=== PATIENT | male | born 1965 | race Caucasian/White ===

== ENCOUNTER 2017-04-26 18:05 | Emergency (ER) | payer OTHER, BC ==
[~2017-04-26] VITALS: Ht 172.7 cm; Wt 72.8 kg
[~2017-04-26 18:05] MED LIST: CLX20 PO; LRT5 PO
[2017-04-26 18:09] VITALS: Ht 172.7 cm; Wt 72.8 kg
[2017-04-26] MEDS ORDERED: BUPIVACAINE 0.5 % 5 MG/1 ML MPF 30ML VIAL INFIL ONE (18:30)
[2017-04-26] MEDS ORDERED: XYLOCAINE 1%/SOD BICARB 20 ML VIAL INFIL ONE (18:30)
[2017-04-26] MEDS ORDERED: DIPHTHERIA/TETANUS/PERTUSSIS 0.5 ML SYR/VIAL IM. ONE (19:00)
--- NOTE | 2017-04-26 19:18 | DIAGNOSTIC IMAGING REPORT ---
LEFT FINGER(S) MIN 2 VIEWS ROUTINE HISTORY: 51 years-old Male crush injury left 4th finger COMPARISON: None available TECHNIQUE: 3 views of the left fingers with attention to the fourth digit FINDINGS: There is moderate soft tissue swelling with subcutaneous emphysema and elevation of the fourth digit nailbed. Punctate radiodensities are seen along the ulnar aspect of the fourth digit at the level of the middle phalanx, suspicious for foreign bodies or alternatively foci on the skin surface. There is no acute fracture or dislocation identified. There is a remote fracture deformity of the distal fifth metacarpal. IMPRESSION: 1. Soft tissue swelling with apparent nailbed injury of the fourth digit. No acute bony abnormality. 2. Punctate radiodense foci along the ulnar aspect of the fourth digit at the level of the middle phalanx suggest foci on the skin surface or alternatively may reflect radiopaque foreign bodies. 3. Remote fracture deformity of the fifth metacarpal. The above report was generated using voice recognition software. It may contain grammatical, syntax or spelling errors. Electronically signed by: Omari Seth M.D. 04/26/2017 7:17 PM Dictated Date/Time: 04/26/2017 7:14 PM
[2017-04-26] MEDS ORDERED: CEPH500C PO (19:52)
--- NOTE | 2017-04-26 19:53 | EMERGENCY ROOM VISIT NOTE ---
ED Visit Note First contact with patient: 18:20 CHIEF COMPLAINT: Fingernail avulsion HISTORY OF PRESENT ILLNESS: This 51-year-old male patient presents to the emergency department approximately one hour after avulsing the fingernail on the left fourth finger at work. The patient states he was unwinding chains on a trailer, when the chain landed on his finger, and he pulled his hand out from under the chain. The patient states his glove remained under the chain as he pulled his finger out. The patient states "I ripped my fingernail off". The bleeding has not stopped. Denies weakness or numbness of the finger. The patient has full range of motion of the fingers. The patient rates the pain as throbbing and 7/10. The patient denies any other injuries. The patient's tetanus shot is not up to date. REVIEW OF SYSTEMS: A 6 system review of systems was completed with positives and pertinent negatives listed in the HPI. ALLERGIES: None MEDICATIONS: None PMH: None SOCIAL HISTORY: A she lives locally with family. He denies drug, back or use. The patient does admit to social alcohol use. PHYSICAL EXAM: Vital Signs: Reviewed Nurse's notes, vital signs stable. GENERAL : This is a 51-year-old male, in no acute distress, well developed, well nourished. SKIN: The left fourth fingernail is avulsed from the base of the nail. The middle of the nail remains intact on the nail bed. There is no laceration under the fingernail. The fingernail remains intact. There is no obvious foreign body. There is moderate bleeding. No deep structures such as tendons, bones, or significant blood vessels are seen in the base of the wound. Extension and flexion of the finger is full and strong. Full range of motion of the wrist and other fingers. Capillary refill less than 2 seconds. Normal sensation to light and sharp touch. RADIOLOGY: X-Ray Left 4th finger: FINDINGS: There is moderate soft tissue swelling with subcutaneous emphysema and elevation of the fourth digit nailbed. Punctate radiodensities are seen along the ulnar aspect of the fourth digit at the level of the middle phalanx, suspicious for foreign bodies or alternatively foci on the skin surface. There is no acute fracture or dislocation identified. There is a remote fracture deformity of the distal fifth metacarpal. IMPRESSION: 1. Soft tissue swelling with apparent nailbed injury of the fourth digit. No acute bony abnormality. 2. Punctate radiodense foci along the ulnar aspect of the fourth digit at the level of the middle phalanx suggest foci on the skin surface or alternatively may reflect radiopaque foreign bodies. 3. Remote fracture deformity of the fifth metacarpal. X-Ray Left Hand: DISCUSSION: There is an old healed fifth metacarpal fracture. There is an old ununited ulnar styloid fracture. Osteoarthritic changes are present most pronounced the level the first carpal metacarpal joint. IMPRESSION: 1. Old healed fracture the fifth metacarpal 2. Old ununited ulnar styloid fracture 3. Osteoarthritic change 4. No acute fractures EMERGENCY DEPARTMENT COURSE: I examined the patient. X-Ray of the left 4th finger showed fracture of the 5th metacarpal bone as well as possible foreign body on the medial aspect of the 4th digit. I did not note any foreign body, and feel that the finding on x-ray was incidental and related to the patient's skin, as the laceration did not extend to the middle phalange where the possible FB was located. Verbal consent was obtained to perform the procedure. Using sterile technique the wound was cleansed with Betadine. 4 ml of 1% buffered lidocaine and 0.5% Bupivacaine was used to perform a digital block to anesthetize the patient. The area was sterilely draped. Once the patient was anesthetized, the wound was copiously irrigated under pressure with sterile saline. The wound was explored and there were no deep structures injured. The nail was tacked to the nail bed using 2 simple interrupted 4-0 sutures. The patient tolerated the procedure well. Hemostasis was achieved, however, there does continue to be oozing of blood from under the fingernail out of the sides. The area was cleaned with sterile saline and dressed with bacitracin ointment and bandage. The patient was given a tetanus booster. X-Ray of the Left hand was performed due to findings on finger x-ray. This was reviewed by myself and radiologist and showed no acute fracture. I discussed all findings with the patient. The patient was discharged home in good condition. DIFFERENTIAL DIAGNOSIS: Fingernail avulsion, foreign body, laceration, finger fracture, metacarpal fracture, and others DIAGNOSIS: Fingernail avulsion DISCHARGE INSTRUCTIONS & TREATMENT: You have received 2 sutures on your left fourth finger, through the nail, for a nail avulsion. These sutures are NOT dissolvable and WILL need to be removed by a health care provider in 14 days. You can return to the Emergency Department or contact your Primary Care Provider to have the sutures removed. You were prescribed Keflex to be taken four times daily. This is an antibiotic. All antibiotics have the potential to cause diarrhea. Stop this medication and contact a medical provider if you were to develop any significant adverse side effects including: wheezing, shortness of breath, passing out, vomiting, or a diffuse rash. Always take antibiotics as directed and COMPLETE the ENTIRE course regardless of the improvement of your symptoms. Proper wound care is essential for adequate wound healing and infection prevention. You can shower and clean the wound with soap and water. Do not scour over the wound, pat dry with a towel. Do not submerse the wound (i.e. bathe or dish wash) until the sutures have been removed. You can use an antibiotic ointment with a dressing over the wound for the next 3-4 days. After this time you may leave the wound dry and open to the air. If crust develops over the wound you can use a Q-tip to apply a 1:1 peroxide:water solution to clean the wound. You may want to keep the wound covered while at work, due to the increased possibility of injuring your fingernail or pulling up the sutures. Please be extremely cautious with use of this finger, as the fingernail is only tacked down. There is a good chance your fingernail will fall off. Look for signs of infection of the wound including: increased pain, swelling, foul discharge, streaking, or increased temperature. If any of these are noticed you should return to the Emergency Department for further assessment and treatment. As with any laceration you may have received nerve damage to the surrounding tissues. This damage may or may not be permanent. You should keep the area covered with sunscreen for the first 6 months to 1 year when at risk for exposure to help minimize scarring. You can also use scar reducing creams or Vitamin E oil to help minimize scarring. For pain control, you can use the following lalt-zoi-navxilq medicines (if >12 yo): - Regular strength (325mg/tab) Tylenol (acetaminophen) 2 tabs every 4-6 hours as needed. Do not exceed 9 tablets in a 24 hour period. Avoid taking more than 3 grams (3000 mg) of Tylenol per day. This includes any other sources of acetaminophen you may take on a regular basis. - Regular strength (200 mg/tab) Advil (ibuprofen) 1-2 tabs every 4-6 hours as needed. Do not exceed a dose of 3200 mg per day. Return to the emergency department if your symptoms worsen despite treatment course outlined above. Current/Historical Medications Scheduled Cephalexin Monohydrate (Keflex), 500 MG PO QID Allergies Coded Allergies: No Known Allergies (Verified , 12/11/13) Vital Signs Date Time Temp Pulse Resp B/P (MAP) Pulse Ox O2 Delivery O2 Flow Rate FiO2 04/26/17 18:09 36.8 78 16 158/100 94 Room Air Medications Administered Medications (Trade) Dose Ordered Sig/Pepper Route Start Time Stop Time Status Last Admin Dose Admin Lidocaine HCl (Buffered Lidocaine 1% Inj) 20 ml ONE ONCE INFIL 04/26/17 18:30 04/26/17 18:31 DC 04/26/17 18:30 20 ML Bupivacaine HCl (Marcaine 0.5% MPF Inj) 30 ml NOW ONCE INFIL 04/26/17 18:30 04/26/17 18:31 DC 04/26/17 18:30 30 ML Diphtheria/ Pertussis/Tetanus Vacc (Adacel Inj) 0.5 ml ONCE ONCE IM. 04/26/17 19:00 04/26/17 19:02 DC 04/26/17 19:20 0.5 ML Cephalexin Monohydrate (Keflex 500MG Home Pack) 1 homepack NOW ONCE PO 04/26/17 20:30 04/26/17 20:31 04/26/17 20:24 1 HOMEPACK Departure Information Impression Primary Impression: Fingernail avulsion, partial Dispostion Home / Self-Care Condition GOOD Prescriptions Cephalexin Monohydrate (Keflex) 500 Mg Cap 500 MG PO QID for 10 Days, #40 CAP Prov: Vernell Noel PA-C 04/26/17 Referrals Subhash Novak M.D. (PCP) Patient Instructions ED Laceration All, [facility] Additional Instructions You have received 2 sutures on your left fourth finger, through the nail, for a nail avulsion. These sutures are NOT dissolvable and WILL need to be removed by a health care provider in 14 days. You can return to the Emergency Department or contact your Primary Care Provider to have the sutures removed. You were prescribed Keflex to be taken four times daily. This is an antibiotic. All antibiotics have the potential to cause diarrhea. Stop this medication and contact a medical provider if you were to develop any significant adverse side effects including: wheezing, shortness of breath, passing out, vomiting, or a diffuse rash. Always take antibiotics as directed and COMPLETE the ENTIRE course regardless of the improvement of your symptoms. Proper wound care is essential for adequate wound healing and infection prevention. You can shower and clean the wound with soap and water. Do not scour over the wound, pat dry with a towel. Do not submerse the wound (i.e. bathe or dish wash) until the sutures have been removed. You can use an antibiotic ointment with a dressing over the wound for the next 3-4 days. After this time you may leave the wound dry and open to the air. If crust develops over the wound you can use a Q-tip to apply a 1:1 peroxide:water solution to clean the wound. You may want to keep the wound covered while at work, due to the increased possibility of injuring your fingernail or pulling up the sutures. Please be extremely cautious with use of this finger, as the fingernail is only tacked down. There is a good chance your fingernail will fall off. Look for signs of infection of the wound including: increased pain, swelling, foul discharge, streaking, or increased temperature. If any of these are noticed you should return to the Emergency Department for further assessment and treatment. As with any laceration you may have received nerve damage to the surrounding tissues. This damage may or may not be permanent. You should keep the area covered with sunscreen for the first 6 months to 1 year when at risk for exposure to help minimize scarring. You can also use scar reducing creams or Vitamin E oil to help minimize scarring. For pain control, you can use the following [id number]-mkw-[id number] medicines (if >12 yo): - Regular strength (325mg/tab) Tylenol (acetaminophen) 2 tabs every 4-6 hours as needed. Do not exceed 9 tablets in a 24 hour period. Avoid taking more than 3 grams (3000 mg) of Tylenol per day. This includes any other sources of acetaminophen you may take on a regular basis. - Regular strength (200 mg/tab) Advil (ibuprofen) 1-2 tabs every 4-6 hours as needed. Do not exceed a dose of 3200 mg per day. Return to the emergency department if your symptoms worsen despite treatment course outlined above. Problem Qualifiers Primary Impression: Fingernail avulsion, partial Encounter type: initial encounter Qualified Codes: S61.309A - Unspecified open wound of unspecified finger with damage to nail, initial encounter
--- NOTE | 2017-04-26 20:11 | DIAGNOSTIC IMAGING REPORT ---
LEFT HAND MIN 3 VIEWS ROUTINE CLINICAL HISTORY: Fifth metacarpal fracture. Crush injury. COMPARISON: Left fourth finger dated 04/26/2017 DISCUSSION: There is an old healed fifth metacarpal fracture. There is an old ununited ulnar styloid fracture. Osteoarthritic changes are present most pronounced the level the first carpal metacarpal joint. IMPRESSION: 1. Old healed fracture the fifth metacarpal 2. Old ununited ulnar styloid fracture 3. Osteoarthritic change 4. No acute fractures Electronically signed by: Xavi Kwon M.D. 04/26/2017 8:10 PM Dictated Date/Time: 04/26/2017 8:09 PM
[2017-04-26] MEDS ORDERED: CEPHALEXIN 500MG HOME PACK 1 EA BTL PO ONE (20:30)
[2017-04-26 20:57] VITALS: BP 141/97; PULSE 72; TEMP 36.8; O2SAT 95
== END 2017-04-26 20:58 | disposition home or self-care (01) ==
LOC: C.EDB 18:07 → C.EDD 20:58
DX: S61.301A Unspecified open wound of left index finger with damage to nail, initial encounter (principal); S52.616 Nondisplaced fracture of unspecified ulna styloid process; W22.8XXA Striking against or struck by other objects, initial encounter; Y99.0 Civilian activity done for income or pay; M19.042 Primary osteoarthritis, left hand

== ENCOUNTER 2019-11-14 10:55 | Observation (INO) ==
[2019-11-14] MEDS ORDERED: SODIUM CHLORIDE 0.9% 1000ML 1,000 ML IV ONE (11:16)
[2019-11-14 11:37] LABS: Basophils # (auto) 0.02 K/uL (0-0.2); Basophils % (auto) 0.2 %; Eosinophils # (auto) 0.16 K/uL (0-0.5); Eosinophils % (auto) 1.6 %; Hemoglobin 16.5 g/dL (14.0-18.0); Immature Granulocytes # (auto) 0.02 K/uL (0.00-0.02); Immature Granulocytes % (auto) 0.2 %; Lymphocytes # (auto) 1.08 K/uL (1.2-3.4); Mean Corpuscular Hemoglobin 30.4 pg (25-34); Mean Corpuscular Hgb Conc 36.7 g/dL (32-36); Mean Platelet Volume 8.9 fL (7.4-10.4); Monocytes # (auto) 1.11 K/uL (0.11-0.59); Monocytes % (auto) 11.3 %; Neutrophils # (auto) 7.39 K/uL (1.4-6.5); Neutrophils % (auto) 75.7 %; Platelet Count 192 K/uL (130-400); RDW Coefficient of Variation 12.1 % (11.5-14.5); RDW Standard Deviation 36.7 fL (36.4-46.3); Red Blood Count 5.42 M/uL (4.7-6.1); White Blood Count 9.78 K/uL (4.8-10.8)
--- NOTE | 2019-11-14 11:47 | Emergency Department Note ---
History of Present Illness General Chief complaint: Abdominal Pain Stated complaint: LOWER RT ABD PAIN Time Seen by Provider: 11/14/19 11:06 History of Present Illness Maximum Pain Intensity: 6 54-year-old male who presents to the emergency department for evaluation of right lower abdominal pain. The patient reports that he noticed the pain this morning while at work. 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 Even walking worsens his pain. He denies any pain radiating into the left lower abdomen or back. He denies any nausea or vomiting, and also denies any recent urinary symptoms, blood in the urine, constipation or diarrhea. The patient denies any prior history of bowel disease. He is stools are normal in appearance and frequency. The pain is constant and achy in nature, with the patient rating his discomfort a 6 out of 10. Home Medications Home Medications Medication Instructions Recorded Confirmed Type omeprazole 20 mg PO DAILY PRN 11/14/19 11/14/19 History Allergies Allergy/AdvReac Type Severity Reaction Status Date / Time No Known Allergies Allergy Unknown Verified 11/14/19 11:21 Past Med/Surg History Medical History GERD (gastroesophageal reflux disease) Surgical History No significant past surgical history Social History marital status: Single current occupational status: employed Feels Safe at Home: Yes Smoking Status: Never smoker Tobacco Type: smokeless tobacco ; Do You Dip or Chew Tobacco: Yes ; Review of Systems 10 system review was performed and was negative except for pertinent positives and negatives as indicated in history of present illness Physical Exam Vital Signs Vital Signs - 24 hr 11/14/19 11:03 11/14/19 13:29 11/14/19 14:02 Temperature 37.0 C 37.0 C Temperature Source Oral Oral Pulse Rate 78 Pulse Rate [Right Finger] 82 82 Pulse Rhythm [Right Finger] Regular Regular Pulse Strength [Right Finger] Normal Normal Respiratory Rate 20 16 16 Respiratory Effort / Characteristics Non-Labored Non-Labored Non-Labored Spontaneous Respiratory Depth Normal Normal Normal Respiratory Pattern Regular Regular Blood Pressure 133/73 Blood Pressure [Right Arm] 131/87 131/87 Blood Pressure Mean 93 Blood Pressure Mean [Right Arm] 101 101 Blood Pressure Position [Right Arm] Lying Sitting Pulse Oximetry 97 95 96 Oxygen Delivery Method Room Air Room Air Room Air Sepsis Recent Fever Within 48 Hours No Sepsis Action Taken by Nursing No Action Required CONSTITUTIONAL: Healthy and well nourished. Patient does not appear in any acute distress. HEENT: Normocephalic, atraumatic. Pupils equal, round and reactive. No scleral icterus or conjunctival injection/pallor. NECK: Full active range of motion without discomfort. RESPIRATORY: Clear to auscultation bilaterally with no wheezing, crackles, rhonchi or stridor. CARDIOVASCULAR: Regular rate and rhythm with no murmurs, rubs or gallops. GASTROINTESTINAL: Bowel sounds present in all quadrants. Positive McBurney's point tenderness, positive Rovsing sign and positive heeltap. Negative psoas/obturator sign. Negative CVA tenderness. No abdominal rigidity, guarding or rebound. MUSCULOSKELETAL: Full range of motion of all joints without discomfort. INTEGUMENTARY: No rash or other significant dermatologic conditions noted. HEMATOLOGIC: No ecchymosis or petechiae. PSYCHIATRIC: Positive affect. NEUROLOGIC: No focal neurologic deficits noted. Course Course Patient history and physical exam were performed. Nurse's notes were reviewed. Vital signs were reviewed and were normal. The patient refused any analgesics. IV access was established, and labs were drawn. The patient was hydrated with a liter of normal saline. Review of labs does not show any significant abnormalities. CT of the abdomen and pelvis with IV contrast shows evidence for a Meckel's diverticulitis of the small bowel in the right lower quadrant. Findings were discussed with Dr. Davison, ED attending physician, who recommended discussing the case further with general surgery. I then discussed the case further with Angelo Biggs PA-C, working with Dr. Patel, and came to the emergency department for further reevaluation. Please see their dictation for further treatment and final disposition. Administered Medications Ioversol (Optiray 320 100ml) 94 ml IV ONCE PRN PRN Reason: Interaction Checking Stop: 11/18/19 12:09 Last Admin: 11/14/19 12:11 Dose: 94 ml Documented by: [id number] Discontinued Medications Sodium Chloride (Nss 1000ml) 1,000 mls @ 999 mls/hr IV .Q1H1M ONE Stop: 11/14/19 12:16 Last Infusion: 11/14/19 12:37 Dose: 0 mls/hr Documented by: [id number] Admin: 11/14/19 11:29 Dose: 999 mls/hr Documented by: [id number] Medical Decision Making Medical Records Attestation: I reviewed the patient's medical records. Home Medications Current Medication List: was personally reviewed by me Laboratory Data Attestation: I reviewed the patient's lab results. Result diagrams: 11/14/19 11:28 11/14/19 11:28 Lab Results 11/14/19 11/14/19 11/14/19 Range/Units 11:28 11:28 12:06 WBC 9.78 (4.8-10.8) K/uL RBC 5.42 (4.7-6.1) M/uL Hgb 16.5 (14.0-18.0) g/dL Hct 45.0 (42-52) % MCV 83.0 (80-100) fL MCH 30.4 (25-34) pg MCHC 36.7 H (32-36) g/dL RDW Std Deviation 36.7 (36.4-46.3) fL RDW Coeff of Maria De Jesus 12.1 (11.5-14.5) % Plt Count 192 (130-400) K/uL MPV 8.9 (7.4-10.4) fL Immature Gran % (Auto) 0.2 % Neut % (Auto) 75.7 % Lymph % (Auto) 11.0 % [place] % (Auto) 11.3 % Eos % (Auto) 1.6 % Baso % (Auto) 0.2 % Immature Gran # (Auto) 0.02 (0.00-0.02) K/uL Neut # (Auto) 7.39 H (1.4-6.5) K/uL Lymph # (Auto) 1.08 L (1.2-3.4) K/uL [place] # (Auto) 1.11 H (0.11-0.59) K/uL Eos # (Auto) 0.16 (0-0.5) K/uL Baso # (Auto) 0.02 (0-0.2) K/uL Sodium 138 (136-145) mmol/L Potassium 4.0 (3.5-5.1) mmol/L Chloride 106 (98-107) mmol/L Carbon Dioxide 25 (21-32) mmol/L Anion Gap 7.0 (3-11) BUN 20 H (7-18) mg/dl Creatinine 1.02 (0.6-1.4) mg/dl Est Cr Clr Drug Dosing 73.8 ml/min Est GFR ( Amer) 95.5 Est GFR (Non-Af Amer) 82.4 BUN/Creatinine Ratio 19.9 (10-20) Glucose 85 (70-99) mg/dl Calcium 9.6 (8.5-10.1) mg/dl Total Bilirubin 0.7 (0.2-1) mg/dl AST 24 (15-37) U/L ALT 51 (12-78) U/L Alkaline Phosphatase 82 (45-117) U/L Total Protein 8.2 (6.4-8.2) gm/dl Albumin 4.2 (3.4-5.0) gm/dl Globulin 4.0 (2.5-4.0) gm/dl Albumin/Globulin Ratio 1.1 (0.9-2) Lipase 166 (73-393) U/L Urine Color Yellow Urine Appearance Clear (Clear) Urine pH 7.0 (4.5-7.5) Ur Specific [place] 1.015 (1.000-1.030) Urine Protein Negative (Negative) Urine Glucose (UA) Negative (Negative) Urine Ketones Negative (Negative) Urine Blood Negative (Negative) Urine Nitrite Negative (Negative) Urine Bilirubin Negative (Negative) Urine Urobilinogen Negative (Negative) Ur Leukocyte Esterase Negative (Negative) Imaging Data Attestation: I personally reviewed and interpreted this imaging study as star alexandre: My Impression: My interpretation of his CT of the abdomen and pelvis with IV contrast does not show evidence for appendicitis or obstruction. Radiologist d oes make mention of a thick-walled bilobed tubular structure within the right lower quadrant, containing air and fluid, suggestive of an inflamed Meckel's diverticulum. Radiologist's Impression: CT abd pelvis IV con only CLINICAL HISTORY: RLQ abd pain COMPARISON STUDY: None. TECHNIQUE: The patient was scanned in a dynamic helical fashion during i ntravenous administration of 94 cc of Optiray 320. A dose lowering technique was utilized adhering to the principles of ALARA. CT DOSE: 295.31 mGy.cm FINDINGS: Lower chest: There are dependent airspace opacities, statistically atelectatic. Liver: The contrast-enhanced liver is normal in size, contour, and attenuation. There is no intrahepatic biliary ductal dilatation. The hepatic veins and portal veins are patent. Gallbladder: Unremarkable. Spleen: Normal in size and attenuation. Pancreas: Unremarkable. Adrenal glands: Unremarkable. Kidneys: There is a 5 mm right renal hypodensity, likely representing a cyst. There is no hydronephrosis Bowel: There are no transition zones to indicate bowel obstruction. There is no evidence of acute diverticulitis. The appendix is normal. In the right lower quadrant, there is a thick-walled tubular structure which contains air and fluid. This appears to communicate with bowel. This likely represents an inflamed Meckel's diverticulum. Peritoneum: There is no intraperitoneal free air or abdominal ascites. Vasculature: The abdominal aorta is normal in course and caliber. Adenopathy: None. Pelvic viscera: There is mild prostatomegaly Skeletal structures: No destructive osseous lesions are seen. IMPRESSION: 1. No evidence of bowel obstruction. No evidence of free air 2. Normal appendix 3. Thick-walled bilobed tubular structure within the right lower quadrant containing air and fluid. This appears to to indicate with small bowel, and likely represents an inflamed Meckel's diverticulum. Blood Pressure Blood Pressure Findings: Normal blood pressure MDM Narrative Patient presents to the emergency department with abrupt onset of right lower quadrant abdominal pain. The patient examines like an acute appendicitis, with a positive McBurney's point tenderness and Rovsing sign. CT imaging does show evidence for a Meckel's diverticulum of the small bowel. Laboratory studies are not consistent with pancreatitis, cholecystitis or hepatitis. The patient was unable to provide a urine sample while in the emergency department. Impression & Plan Meckel's diverticulum, Abdominal pain, acute, right lower quadrant Discharge Plan Visit Data *Final* Discharge Date/Time: 11/14/19 13:59 Chief Complaint: Abdominal Pain Stated Complaint: LOWER RT ABD PAIN ED Provider: Kati Davison ED Midlevel Provider: Raúl Whaley Discharge Problem: Meckel's diverticulum, Abdominal pain, acute, right lower quadrant Patient Disposition: Still a Patient Discharge Instructions Interventions: ED Discharge Assessment Last Done: 11/14/19 13:53
[2019-11-14 12:02] LABS: Albumin Level 4.2 gm/dl (3.4-5.0); BUN Creatinine Ratio 19.9 (10-20); Calcium 9.6 mg/dl (8.5-10.1); Creatinine Clr Calc Pharmacy 73.8 ml/min; Est GFR (African American) 95.5; Est GFR (Non-African American) 82.4
[2019-11-14 12:05] LABS: Albumin Globulin Ratio 1.1 (0.9-2); Bilirubin,Total 0.7 mg/dl (0.2-1); Total Protein 8.2 gm/dl (6.4-8.2)
[2019-11-14] MEDS ORDERED: IOVERSOL 100ml IV PRN (12:10)
--- NOTE | 2019-11-14 12:30 | CT Scan Report ---
CT abd pelvis IV con only CLINICAL HISTORY: RLQ abd pain COMPARISON STUDY: None. TECHNIQUE: The patient was scanned in a dynamic helical fashion during intravenous administration of 94 cc of Optiray 320. A dose lowering technique was utilized adhering to the principles of ALARA. CT DOSE: 295.31 mGy.cm FINDINGS: Lower chest: There are dependent airspace opacities, statistically atelectatic. Liver: The contrast-enhanced liver is normal in size, contour, and attenuation. There is no intrahepa tic biliary ductal dilatation. The hepatic veins and portal veins are patent. Gallbladder: Unremarkable. Spleen: Normal in size and attenuation. Pancreas: Unremarkable. Adrenal glands: Unremarkable. Kidneys: There is a 5 mm right renal hypodensity, likely representing a cyst. There is no hydronephro sis Bowel: There are no transition zones to indicate bowel obstruction. There is no evidence of acute div erticulitis. The appendix is normal. In the right lower quadrant, there is a thick-walled tubular str ucture which contains air and fluid. This appears to communicate with bowel. This likely represents a n inflamed Meckel's diverticulum. Peritoneum: There is no intraperitoneal free air or abdominal ascites. Vasculature: The abdominal aorta is normal in course and caliber. Adenopathy: None. Pelvic viscera: There is mild prostatomegaly Skeletal structures: No destructive osseous lesions are seen. IMPRESSION: 1. No evidence of bowel obstruction. No evidence of free air 2. Normal appendix 3. Thick-walled bilobed tubular structure within the right lower quadrant containing air and fluid. T his appears to to indicate with small bowel, and likely represents an inflamed Meckel's diverticulum. ACT 112: Negative or not required by law. Electronically signed by: Xavi Kwon M.D. 11/14/2019 12:29 PM
[2019-11-14 13:37] LABS: Appearance Urine Clear (Clear); Bilirubin Urine Negative (Negative); Blood Urine Negative (Negative); Color Urine Yellow; Glucose Urine UA Negative (Negative); Ketones Urine Negative (Negative); Leukocyte Esterase Urine Negative (Negative); Nitrite Urine Negative (Negative); Protein Urine Negative (Negative); Specific Gravity Urine 1.015 (1.000-1.030); Urobilinogen Urine Negative (Negative)
--- NOTE | 2019-11-14 13:47 | History & Physical Report ---
Date of Service November 14, 2019 Assessment & Plan (1) Meckel's diverticulitis: This is a 54yM with no major medical issues who presents with right lower abdominal pain starting this AM. CT a/p reveals findings concerning for meckel's diverticulitis and a normal appearing appendix. Patient tender to palpation in the right lower quadrant. Options discussed with patient and he is agreeable to proceed with diagnostic laparoscopy with resection of the meckel's diverticulum. We will book patient for the OR today. Dr. fam will obtain consent. History of Present Illness Primary Care Provider: Subhash Novak MD This is a 54yM who presents to the [facility] ED on 11/14/19 with complaints of right lower abdominal pain. Patient reports he woke up with the pain this morning around 7AM. He went to work and run and felt like he had jolting pains with movement. He denies pain like this before, no nausea/vomiting. He presented to the ED as pain continued throughout the day. A CT a/p performed revealed findings concerning for an inflamed meckel's diverticulitis. WBC 9.78 and patient afebrile. Surgery was consulted. Allergies Allergy/AdvReac Type Severity Reaction Status Date / Time No Known Allergies Allergy Unknown Verified 11/14/19 11:21 Home Medications Home Medications Medication Instructions Recorded Confirmed Type omeprazole 20 mg PO DAILY PRN 11/14/19 11/14/19 History Past Med/Surg History Medical History GERD (gastroesophageal reflux disease) Surgical History No significant past surgical history Social History marital status: Single current occupational status: employed Feels Safe at Home: Yes Smoking Status: Never smoker Tobacco Type: smokeless tobacco ; Do You Dip or Chew Tobacco: Yes ; Review of Systems Gastrointestinal: + abdominal pain (right lower abdominal pain); no nausea and no vomiting Physical Exam Physical Exam: awake/alert Constitutional: well developed, well nourished, cooperative and comfortable; no acute distress Respiratory: normal respiratory effort Gastrointestinal (Abdomen): Inspection/Auscultation: abdomen not distended Percussion/Palpation: + abdomen tender (ttp in the rlq) and abdomen soft Results & Data Vital Signs (Past 12 Hours) Vital Signs Temp Pulse Pulse Resp BP BP Pulse Ox 11/14/19 13:29 82 16 131/87 95 11/14/19 11:03 37.0 C 78 20 133/[address] abd pelvis IV con only CLINICAL HISTORY: RLQ abd pain COMPARISON STUDY: None. TECHNIQUE: The patient was scanned in a dynamic helical fashion during intravenous administration of 94 cc of Optiray 320. A dose lowering technique was utilized adhering to the principles of ALARA. CT DOSE: 295.31 mGy.cm FINDINGS: Lower chest: There are dependent airspace opacities, statistically atelectatic. Liver: The contrast-enhanced liver is normal in size, contour, and attenuation. There is no intrahepatic biliary ductal dilatation. The hepatic veins and portal veins are patent. Gallbladder: Unremarkable. Spleen: Normal in size and attenuation. Pancreas: Unremarkable. Adrenal glands: Unremarkable. Kidneys: There is a 5 mm right renal hypodensity, likely representing a cyst. There is no hydronephrosis Bowel: There are no transition zones to indicate bowel obstruction. There is no evidence of acute diverticulitis. The appendix is normal. In the right lower quadrant, there is a thick-walled tubular structure which contains air and fluid. This appears to communicate with bowel. This likely represents an inflamed Meckel's diverticulum. Peritoneum: There is no intraperitoneal free air or abdominal ascites. Vasculature: The abdominal aorta is normal in course and caliber. Adenopathy: None. Pelvic viscera: There is mild prostatomegaly Skeletal structures: No destructive osseous lesions are seen. IMPRESSION: 1. No evidence of bowel obstruction. No evidence of free air 2. Normal appendix 3. Thick-walled bilobed tubular structure within the right lower quadrant containing air and fluid. This appears to to indicate with small bowel, and likely represents an inflamed Meckel's diverticulum. ACT 112: Negative or not required by law. Electronically signed by: Xavi Kwon M.D. 11/14/2019 12:29 PM Supervising Physician Co-Signing Physician Notes Patient seen and examined, labs and imaging reviewed, agree with above. 54-year-old male with sudden onset right lower quadrant pain this morning. Afebrile, vital signs stable. Tender to palpation in right lower quadrant with localized guarding. CT scan shows a normal appendix but reveals a possible inflamed Meckel's diverticulum. Plan for diagnostic laparoscopy, resection of Meckel's diverticulum, possible appendectomy, possible bowel resection, possible open The risk the procedure were discussed to include but not limited to bleeding, infection, need for future more extensive surgery, damage to surrounding structures, conversion open, no evidence of Meckel's and normal appendix, and the risk of anesthesia Preop antibiotics Admit for observation postop PG Care Time/CCT Total # of Minutes Spent Total Time Spent with Patient: Total time spent is greater than 50% in coordination of care (as documented) at patient's floor/unit and/or counseling patient: Coding Level of Care Code 96902 Initial Inpt Care Lvl 2 Diagnoses Meckel's diverticulitis Q43.0
[2019-11-14] MEDS ORDERED: FLUMAZENIL 0.1 MG/1 ML 10 ML VIAL IV PRN (14:15)
[2019-11-14] MEDS ORDERED: ePHEDrine sulfate 50 MG/ML AMP IV PRN (14:15)
[2019-11-14] MEDS ORDERED: fentaNYL citrate 100 MCG/2 ML VIAL IV PRN (14:15)
[2019-11-14] MEDS ORDERED: LABETALOL HCL IV 5 MG/ML 20ML IV PRN (14:15)
[2019-11-14] MEDS ORDERED: ONDANSETRON INJ 2 MG/ML 2 ML VIAL IV PRN ×2 (14:15→17:38)
[2019-11-14] MEDS ORDERED: HYDROmorphone INJ 1 MG/ML SYRINGE IV PRN (14:15)
[2019-11-14] MEDS ORDERED: NALOXONE HCL 0.4 MG/1 ML VIAL/CARP IV PRN (14:15)
[2019-11-14] MEDS ORDERED: ATROPINE SULFATE 0.1 MG/ML 10ML SYR IV PRN (14:15)
[2019-11-14] MEDS ORDERED: PROMETHAZINE HCL 12.5 MG in SODIUM CHLORIDE 0.9% 50 ML IV PRN (14:15)
--- NOTE | 2019-11-14 14:15 | Anesthesiology Consultation ---
Date of Service November 14, 2019 Assessment & Plan Chart Review Chart Review: Acceptable Risk for Surgery and Patient NOT seen in Pre Admission Testing Consults Requested none ASA [id number] Proposed Anesthesia Anesthesia Type: General Risk / Benefits Reviewed With: PT / POA / Parent / Guardian, Accepts Plan and Informed Consent Obtained History Surgery Operation Date: 11/14/19 11:25 Proposed Procedures p Diagnostic Laparoscopy, Possible Resection Meckel's Diverticulum, Possible Appendectomy - Dawson Patel, DO, FACS Height/Weight Height: 5 ft 6 in Weight: 76.3 kg Allergies Allergy/AdvReac Type Severity Reaction Status Date / Time No Known Allergies Allergy Unknown Verified 11/14/19 11:21 Medications Home Medications Medication Instructions Recorded Confirmed Last Taken omeprazole 20 mg PO DAILY PRN 11/14/19 11/14/19 Unknown Active Medications Generic Name Dose Route Start Last Admin Trade Name Freq PRN Reason Stop Dose Admin Ioversol 94 ml 11/14/19 12:10 11/14/19 12:11 Optiray 320 100ml IV 11/18/19 12:09 94 ml ONCE PRN Administration Interaction Checking NPO Date Last Intake of Fluids: 11/14/19 Time Last Intake of Fluids: 07:30 Date Last Intake of Solids: 11/14/19 Time Last Intake of Solids: 07:30 Past Medical History Medical History GERD (gastroesophageal reflux disease) Exercise / Class Metabolic Activity II 4-5 Yardwork/Stairs/Walk up hill Past Surgical History Surgical History No significant past surgical history Past Anesthesia History No Hx of Anesthesia Complications and No Family Hx of Anesthesia Complications History of PONV No Hx of PONV and No Hx of Motion Sickness Social History Smoking Status: Never smoker tobacco type: smokeless tobacco Do You Dip or Chew Tobacco: Yes Physical Exam Vital Signs Last Vital Signs Temp 37.0 C 11/14/19 14:02 Pulse 82 11/14/19 14:02 Resp 16 11/14/19 14:02 BP 131/87 11/14/19 14:02 Pulse Ox 96 11/14/19 14:02 Constitutional not obese ENMT Mouth: no dentition abnormality Thyromental Distance: > or= 3.5 Finger Breadths Mallampati Class: II Neck normal visual inspection and trachea midline; neck extension not limited Respiratory normal respiratory effort Auscultation: lungs clear to auscultation bilaterally Cardiovascular Rate/Rhythm: regular rate and regular rhythm Heart Sounds: no murmur Vessels: no carotid bruit Musculoskeletal Spine: normal cervical ROM Extremities: extremities normal to inspection Neurologic moves all extremities Motor/Sensory: no sensory deficit Psychiatric Orientation: alert and oriented x 3 Testing Laboratory Results 11/14/19 11:28 11/14/19 11:28 Urine Color Yellow 11/14/19 12:06 Urine Appearance Clear (Clear) 11/14/19 12:06 Urine pH 7.0 (4.5-7.5) 11/14/19 12:06 Ur Specific [place] 1.015 (1.000-1.030) 11/14/19 12:06 Urine Protein Negative (Negative) 11/14/19 12:06 Urine Glucose (UA) Negative (Negative) 11/14/19 12:06 Urine Ketones Negative (Negative) 11/14/19 12:06 Urine Nitrite Negative (Negative) 11/14/19 12:06 Ur Leukocyte Esterase Negative (Negative) 11/14/19 12:06
[2019-11-14] MEDS ORDERED: MIDAZOLAM HCL 1 MG/ML 2ML VIAL ONE (14:22)
[2019-11-14] MEDS ORDERED: fentaNYL citrate 100 MCG/2 ML VIAL ONE ×2 (14:22→16:07)
[2019-11-14] MEDS ORDERED: BUPIVACAINE 0.5 % 5 MG/1 ML MPF 30ML VIAL ONE (15:02)
[2019-11-14] MEDS ORDERED: BUPIVACAINE LIPOSOME 1.3% 266 MG/20 ML VIAL ONE (15:02)
[2019-11-14] MEDS ORDERED: DEXAMETHASONE SOD INJ 4 MG/ML VIAL ONE (15:26)
[2019-11-14] MEDS ORDERED: ROCURONIUM BROMIDE 10 MG/ML 5 ML VIAL ONE (15:26)
[2019-11-14] MEDS ORDERED: NEOSTIGMINE METHYLSULFATE 5 MG/5 ML SYR ONE (15:26)
[2019-11-14] MEDS ORDERED: SUCCINYLCHOLINE CHLORIDE 20 MG/ML 10 ML VIAL ONE (15:26)
[2019-11-14] MEDS ORDERED: LIDOCAINE HCL 2% 2 ML VIAL/AMP(20MG/ML) INFIL ONE (15:26)
[2019-11-14] MEDS ORDERED: PHENYLEPHRINE 100MCG/ML 5ML SYR ONE (15:26)
[2019-11-14] MEDS ORDERED: GLYCOPYRROLATE 0.2 MG/ML VIAL ONE (15:26)
[2019-11-14] MEDS ORDERED: ONDANSETRON INJ 2 MG/ML 2 ML VIAL ONE (15:26)
[2019-11-14] MEDS ORDERED: PROPOFOL IV EMULSION 10 MG/ML 20 ML VIAL IV ONE (15:26)
[2019-11-14] MEDS ORDERED: cefOXitin 2,000 MG in DEXTROSE 5% 50 ML IV STA (15:35)
[2019-11-14] MEDS ORDERED: KETOROLAC 30 MG/ML VIAL ONE (16:01)
--- NOTE | 2019-11-14 16:13 | Operative Report ---
PG Post Operative Report Pre & Post Diagnosis Operation Date: 11/14/19 11:25 Pre-Op Diagnosis: Meckel's Diverticulitis Post-Op Diagnosis: Meckel's Diverticulitis I identified the patient and participated in the time-out.: Yes Procedure Operation Date: 11/14/19 11:25 Actual Procedures p Diagnostic Laparoscopy, Resection Meckel's Diverticulum, Appendectomy(Not Applicable) - Dawson Patel DO, MICHAELA Surgeon Dawson Patel DO, MICHAELA Software Licensing Analyst Aj Biggs Estimated Blood Loss 5 Findings Consistent with Post-Op Diagnosis Inflamed Meckel's diverticulitis with narrow mouth. Stapled transversely to bowel along antimesenteric border. Appendectomy performed. Hemostasis was good. No other abnormalities within the 4 quadrants of the abdomen. Specimens Meckel's diverticulum Appendix Anesthesia Type General Complications none Disposition Accompanied Patient To Recovery: No Disposition: Recovery Room Indications 54-year-old male presented to the emergency department with right lower quadrant abdominal pain that started this morning. CT scan showed an inflamed Meckel diverticulum. Plan for diagnostic laparoscopy, resection of Meckel's diverticulum, possible appendectomy, possible small bowel resection, possible open. The risks of the procedure were discussed, all questions were answered, and the patient agreed to proceed with surgery as planned. Description of Procedure The patient was properly identified, consented, and taken to the operating room where he was placed in the supine position. General endotracheal anesthesia was induced. SCDs and a safety belt were placed. Preoperative antibiotics were administered. A Tellez catheter was not placed. The patient's abdomen was prepped and draped in the standard sterile fashion. Surgical timeout was performed and all parties were in agreement that this was the correct patient and procedure to be performed and we continued as planned. A vertical infraumbilical incision was made with electrocautery and deepened down to the fascia with blunt dissection. The base of the umbilicus was grasped with a Cahntell and elevated towards the ceiling. An incision was made in the midline fascia with a knife and entry into the peritoneum was confirmed. Stay suture of 0 Vicryl was placed and a Barbosa trocar was inserted. The abdomen was insufflated with carbon dioxide which the patient tolerated without incident. The laparoscope was inserted and no damage from initial trocar placement was noted, no gross abnormalities were noted within the 4 quadrants the abdomen. 5 mm ports were then placed in the left lower quadrant with care not to damage the epigastric vessels, and in the suprapubic midline with care not to damage the bladder. The patient was placed in Trendelenburg position and rotated towards the left. The small bowel was swept away from the right lower quadrant. There was an inflamed Meckel's diverticulum identified and was adherent to the anterior abdominal wall at the level of the medial umbilical ligament. There is no evidence of perforation. This was gently teased away from the abdominal wall with blunt dissection. The base of the diverticulum appeared no mouth and healthy. This was grasped and elevated. The afferent and efferent limb of the small bowel were identified. A 60 mm purple loaded Endo GIORGI stapler was then used to divide the diverticulum at its base and was fired transversely across the small bowel. Prior to firing we ensured that this would not narrow the small bowel. There was a small amount of bleeding from the staple line which was controlled with electrocautery. We then decided to perform an appendectomy as was previously discussed with the patient. The cecum was grasped with an atraumatic grasper exposing the appendix. A window was created between the base of the appendix and the mesoappendix. A ruvalcaba loaded endoscopic stapler was then used to divide the appendix at its base. A ruvalcaba load was then used to divide the mesoappendix. Hemostasis was good. The appendix and the Meckel's diverticulum were placed in an Endo Catch bag and removed through the umbilical port site. The right lower quadrant and pelvis was irrigated and hemostasis was found to be good. 5 mm trochars were removed under direct visualization and the abdomen was allowed to collapse. The umbilical port site fascia was closed with 0 Vicryl suture. The wound was irrigated, and the skin of all ports was closed with 4-0 Monocryl subcuticular sutures. Dermabond was placed over the wounds. The patient was extubated in the operating room and taken to the PACU where he recovered without apparent incident. All sponge, instrument and needle counts were correct at the conclusion of the procedure. The patient tolerated the procedure well. The physician's medical assistant per diem was present and scrubbed for the entire the case. He was critical in positioning the patient, prepping and draping, retraction and ex posure, driving the laparoscope, closure the incisions, and placement of the dressings. I attest to the content of the Intraoperative Record and any orders documented therein. Any exceptions are noted below.
--- NOTE | 2019-11-14 16:51 | Anesthesiology Progress Note ---
Date of Service November 14, 2019 Anesthesia Post Procedure Vital Signs Vital Signs: Temp Pulse Pulse Pulse Resp BP BP 11/14/19 16:46 74 19 110/82 11/14/19 16:40 68 18 132/82 11/14/19 16:30 64 24 140/89 11/14/19 16:21 36.9 C 80 16 141/96 H 11/14/19 14:02 37.0 C 82 16 131/87 11/14/19 13:29 82 16 131/87 11/14/19 11:03 37.0 C 78 20 133/73 Pulse Ox 11/14/19 16:46 93 11/14/19 16:40 92 11/14/19 16:30 92 11/14/19 16:21 92 11/14/19 14:02 96 11/14/19 13:29 95 11/14/19 11:03 97 Pain Intensity Right Lower Abdomen: Pain Intensity: 0 Transfer of Care Handoff Completed per policy Notes Mental Status: alert / awake / arousable Patient Amnestic to Procedure: Yes Nausea / Vomiting: adequately controlled Pain: adequately controlled Airway Patency, RR, SpO2: stable & adequate BP & HR: stable & adequate Hydration State: stable & adequate Anesthetic Complications: no major complications apparent
[2019-11-14] MEDS ORDERED: OXYCODONE/ACETAMINOPHEN 5mg/325mg TAB PO PRN ×2 (17:38)
[2019-11-14] MEDS ORDERED: MoRPHine SULFATE 2 MG/ML CARP IV PRN (17:38)
[2019-11-14] MEDS: LACTATED RINGER'S 1,000 ML IV SCH (18:13)
[2019-11-15 05:48] LABS: Hematocrit (blood only) 38.9 % (42-52); Hemoglobin 13.5 g/dL (14.0-18.0); Mean Corpuscular Hemoglobin 29.5 pg (25-34); Mean Corpuscular Hgb Conc 34.7 g/dL (32-36); Mean Corpuscular Volume 85.1 fL (80-100); Mean Platelet Volume 9.2 fL (7.4-10.4); Platelet Count 178 K/uL (130-400); RDW Coefficient of Variation 12.1 % (11.5-14.5); RDW Standard Deviation 37.3 fL (36.4-46.3); Red Blood Count 4.57 M/uL (4.7-6.1); White Blood Count 9.22 K/uL (4.8-10.8)
[2019-11-15] MEDS: LACTATED RINGER'S 1,000 ML IV SCH (05:55)
[2019-11-15 06:01] LABS: BUN Creatinine Ratio 16.8 (10-20); Calcium 8.4 mg/dl (8.5-10.1); Creatinine Clr Calc Pharmacy 68.5 ml/min; Est GFR (African American) 87.1; Est GFR (Non-African American) 75.2; Potassium 4.4 mmol/L (3.5-5.1)
--- NOTE | 2019-11-15 07:56 | Surgery Progress Note ---
Date of Service November 15, 2019 Assessment & Plan (1) Meckel's diverticulum: POD 1 lap resection of Meckel's and appendectomy tolerating diet, has not taken any analgesics ok for d/c later this AM Subjective no nausea, had regular dinner Physical Exam Gastrointestinal (Abdomen): Inspection/Auscultation: + abdominal surgical incision (clean, dry); abdomen not distended Percussion/Palpation: abdomen soft Results & Data Vital Signs (Past 12 Hours) Vital Signs Temp Pulse Resp BP BP Pulse Ox 11/15/19 02:59 36.5 C 65 16 113/65 92 11/14/19 22:58 37.1 C 64 15 100/63 95 11/14/19 20:15 36.9 C 77 18 111/73 94 PG Care Time/CCT Total # of Minutes Spent Total Time Spent with Patient: Total time spent is greater than 50% in coordination of care (as documented) at patient's floor/unit and/or counseling patient: Coding Level of Care Code None Diagnoses Meckel's diverticulum Q43.0
[2019-11-15] MEDS ORDERED: PANTOprazole 40 MG TAB PO SCH (09:00)
--- NOTE | 2019-11-15 09:11 | Anesthesiology Progress Note ---
Date of Service November 15, 2019 Anesthesia Post Procedure Vital Signs Vital Signs: Temp Pulse Pulse Pulse Resp BP BP 11/15/19 08:05 36.8 C 60 16 128/68 11/15/19 02:59 36.5 C 65 16 113/65 11/14/19 22:58 37.1 C 64 15 11/14/19 20:15 36.9 C 77 18 11/14/19 19:14 37.3 C 85 15 11/14/19 18:31 36.9 C 86 16 11/14/19 17:55 36.9 C 75 18 11/14/19 17:15 37.5 C 80 18 11/14/19 16:50 37.4 C 74 19 11/14/19 16:40 68 18 11/14/19 16:30 64 24 11/14/19 16:21 36.9 C 80 16 11/14/19 14:02 37.0 C 82 16 11/14/19 13:29 82 16 11/14/19 11:03 37.0 C 78 20 133/73 BP Pulse Ox 11/15/19 08:05 93 11/15/19 02:59 92 11/14/19 22:58 100/63 95 11/14/19 20:15 111/73 94 11/14/19 19:14 110/71 92 11/14/19 18:31 117/71 93 11/14/19 17:55 128/75 93 11/14/19 17:15 118/76 88 L 11/14/19 16:50 110/82 93 11/14/19 16:40 132/82 92 11/14/19 16:30 140/89 92 11/14/19 16:21 141/96 H 92 11/14/19 14:02 131/87 96 11/14/19 13:29 131/87 95 11/14/19 11:03 97 Pain Intensity Right Lower Abdomen: Pain Intensity: 0 Abdomen: Pain Intensity: 2 Notes Mental Status: alert / awake / arousable and participated in evaluation Patient Amnestic to Procedure: Yes Nausea / Vomiting: adequately controlled Pain: adequately controlled Airway Patency, RR, SpO2: stable & adequate BP & HR: stable & adequate Hydration State: stable & adequate Anesthetic Complications: no major complications apparent and Pt Satisfied with anesthetic care
--- NOTE | 2019-11-19 09:14 | Discharge Summary ---
Date of Service November 19, 2019 Admission HPI Per Admitting Provider This is a 54yM who presents to the [facility] ED on 11/14/19 with complaints of right lower abdominal pain. Patient reports he woke up with the pain this morning around 7AM. He went to work and run and felt like he had jolting pains with movement. He denies pain like this before, no nausea/vomiting. He presented to the ED as pain continued throughout the day. A CT a/p performed revealed findings concerning for an inflamed meckel's diverticulitis. WBC 9.78 and patient afebrile. Surgery was consulted. Principal Diagnosis Meckel's diverticulitis Discharge Exam Gastrointestinal (Abdomen) Inspection/Auscultation: + abdominal surgical incision (clean, dry); abdomen not distended Percussion/Palpation: abdomen soft Discharge Data Allergies Allergy/AdvReac Type Severity Reaction Status Date / Time No Known Allergies Allergy Unknown Verified 11/14/19 11:21 Consultations 11/14/19 13:21 ED Decision to Admit Stat Procedures Performed Operation Date: 11/14/19 11:25 Actual Procedures p Diagnostic Laparoscopy, Resection Meckel's Diverticulum(Not Applicable) - Dawson Patel DO, FACS s Appendectomy(Not Applicable) - Dawson Patel DO, FACS Ordered Studies 11/14/19 11:16 CT abd pelvis IV con only Stat Hospital Course (1) Meckel's diverticulum: 54 y/o male presented to the ER with abdominal pain. White count was 9,[address] showed an inflamed Meckel's diverticulum. He was taken to the operating room for laparoscopic diverticulectomy along with appendectomy and transferred to the surgical floor for overnight observation. In the morning he was able to tolerate regular diet and was not needing any analgesics. He was stable for discharge home. Total Time Total Time Spent Total Time Spent (In Minutes): 10 Discharge Plan Discharge Items Patient Disposition: Home - Self-Care Reason For Visit: POST OP Discharge Diagnosis: laparoscopic resection of Meckel's diverticulum and appendectomy Activity: Resume your previous activity Lifting: No more than 10 pounds Bathing: No limitations Non-emergency contact: Surgeon Call non-emergency contact if: you have any medication questions, your pain is not controlled, you have a fever, your temperature is above 101.5, your wound has increased redness and your wound has increased drainage Follow-up/Referrals: Dawson Patel, MICHAELA DONOVAN [Physician] - 11/22/19 9:20 am (Call to make an appt in 1-2 weeks) Subhash Novak MD [Primary Care Provider] - 11/19/19 12:25 pm Diet: Low Fiber Addtl Attending Provider Instructions: You can take Tylenol or ibuprofen as needed for pain Stay on a low fiber diet for a few days Pending Studies at Discharge: Yes Studies:: pathology Visit Report Forms: Smoking Cessation Stand-Alone Forms: [facility], Opioid Pain Management, Work/School Release (Inpt), Smoking Cessation Medications and DC Order Prescriptions: New oxycodone-acetaminophen [Percocet] 5-325 mg tablet 1 - 2 tab PO Q4H PRN (Reason: pain, initial therapy, max 6 daily) Qty: 15 RF: 0 Continued omeprazole 20 mg capsule,delayed release(DR/EC) 20 mg PO DAILY PRN (Reason: Heartburn) RF: 0 Discharge Orders: Discharge Order (Routine); Ordered 11/15/19 Ordered By: Aj Zhang/Other Patient Handouts: Diet Low Residue, Diverticulitis Dc Admission Data Admit Date/Time: 11/14/19 16:07 Attending Provider: Dawson Patel Admit Provider: Dawson Patel Primary Care Provider: Subhash Novak Other Providers: Dawson Patel Other Interventions: Discharge Summary Assessment (RN) Last Done: 11/15/19 09:18 DC Date/Time DO NOT enter until pt leaves facility: 11/15/19 10:01 Coding Level of Care Code D/C Day Management <30 mins Diagnoses Meckel's diverticulum Q43.0
== END 2019-11-15 10:01 | disposition home or self-care (01) ==
LOC: ED 10:55 → OR 13:59 → 3N 13:59